=== PATIENT | female | born 1980 | race Caucasian/White ===

== ENCOUNTER 2021-05-14 14:30 | Emergency (ER) | payer SELFPAY ==
--- NOTE | 2021-05-14 15:44 | EDM.PDOC ---
ED HPI GENERAL MEDICAL PROBLEM - General Chief Complaint: General Stated Complaint: R) foot pain Time Seen by Provider: 05/14/21 15:20 Source of Information: Reports: Patient History Limitations: Reports: No Limitations - History of Present Illness INITIAL COMMENTS - FREE TEXT/NARRATIVE: This patient is a 40 year old female that presents to the ER. Patient reports that at 9am she was putting a vice on a table to help weight it down. They were getting ready to bolt it down when the vice fell onto her foot from top of the table. She reports it weighs about 75-100lbs. She reports it landed on her right foot. Patient reports right foot pain. Denies other injuries. Onset: Today Onset Date: 05/14/21 Onset Time: 09:00 Location: Reports: Lower Extremity, Right Front/Back Body Image: 1 - pain, tenderness, swelling. 2 - eccyhmosis 3 - small puncture wound Quality: Reports: Throbbing Severity: Moderate Improves with: Reports: Immobilization Worsens with: Reports: Movement Associated Symptoms: Reports: No Other Symptoms Right Foot Pain Score (Numeric/FACES): 10 - Related Data Allergies Allergy/AdvReac Type Severity Reaction Status Date / Time morphine Allergy Headache Verified 05/14/21 14:40 Penicillins Allergy Hives Verified 05/14/21 14:40 venlafaxine [From Effexor] Allergy Vomiting Verified 05/14/21 14:40 Home Meds: Home Meds Acetaminophen [Tylenol Extra Strength] 1 tab PO ASDIRECTED PRN 05/14/21 [History] Buprenorphine [Subutex] 83 mg PO TID 05/14/21 [History] Clindamycin HCl 300 mg PO QID #20 capsule 05/14/21 [Rx] Cyclobenzaprine [Flexeril] 10 mg PO TID PRN 05/14/21 [History] Gabapentin [Neurontin] 400 mg PO ASDIRECTED 05/14/21 [History] Ibuprofen [Motrin] 200 mg PO ASDIRECTED PRN 05/14/21 [History] Omeprazole 20 tab PO ASDIRECTED 05/14/21 [History] SUMAtriptan succinate [Imitrex] 1 tab PO ASDIRECTED 05/14/21 [History] levETIRAcetam [Keppra] 750 mg PO BID 05/14/21 [History] Past Medical History Respiratory History: Reports: Asthma Gastrointestinal History: Reports: Other (See Below) Other Gastrointestinal History: constipation 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 FORESTER History: 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: 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 (See Below) Other RESOURCE FORESTER History: 2 c-sections Neurological History: Reports: Migraines Psychiatric History: Reports: Anxiety, Depression Social & Family History - Tobacco Use Tobacco Use Status *Q: Current Every Day Tobacco User Years of Tobacco use: 29 Packs/Tins Daily: 1 - Caffeine Use Caffeine Use: Reports: Coffee, Energy Drinks - Recreational Drug Use Recreational Drug Use: No ED ROS GENERAL - Review of Systems Review Of Systems: See Below Constitutional: Reports: No Symptoms HEENT: Reports: No Symptoms Respiratory: Reports: No Symptoms Cardiovascular: Reports: No Symptoms Endocrine: Reports: No Symptoms GI/Abdominal: Reports: No Symptoms : Reports: No Symptoms Musculoskeletal: Reports: Foot Pain (Right) Skin: Reports: Bruising (right foot), Wound (small uncture right greater toe) Neurological: Reports: No Symptoms Psychiatric: Reports: No Symptoms Hematologic/Lymphatic: Reports: No Symptoms Immunologic: Reports: No Symptoms ED EXAM, GENERAL - Physical Exam Exam: See Below Exam Limited By: No Limitations General Appearance: Alert, WD/WN, No Apparent Distress Eye Exam: Right Eye: Corneal Abrasion Respiratory/Chest: No Respiratory Distress, Lungs Clear, Normal Breath Sounds, No Accessory Muscle Use Cardiovascular: Normal Peripheral Pulses, Regular Rate, Rhythm, No Edema, No Gallop, No JVD, No Murmur, No Rub Peripheral Pulses: 2+: Radial (L), Radial (R), Posterior Tibial (L), Posterior Tibial (R), Dorsalis Pedis (L), Dorsalis Pedis (R) Extremities: Normal Range of Motion, Normal Capillary Refill, Other (Right foot swelling, pain, tenderness, eccyhmosis. 1st/2nd/3rd metatarsal regions. Pulses +2, cap refill < 2 sec, sensory/motor function intact. Neurovascular intact. ) Neurological: Alert, Oriented, Normal Cognition, No Motor/Sensory Deficits Psychiatric: Normal Affect, Normal Mood Skin Exam: Warm, Dry, No Rash, Ecchymosis (Right foot 1st greater toe), Wou nd/Incision (small puncture wound left greater toe) ED GENERAL MEDICAL PROCEDURES - Additional/Other Procedure(s) Other (Free Text) Procedure(s): Right greater toe nail removal to check for laceration. betadine to clean the areaDigital block using marcaine 0.5% plain, lidocaine 1% plain 1ml in each webspace using a 28g needle. Patient numb achieved. No complications. Used 11 blade to under cut the nail from the bed. Used hemostats to carefully rotate the nail back and forth to pull the nail from the bed without injury. Moderate bleeding. There is no seen laceration, there is an abrasion that is not suturable at about 10 o clock nailbed. Hibiclens to clean the nailbed. rinse with NS. Pressure applied to stop the bleeding. Bleeidng controlled, Xeroform placed on wound, nonstick telfa, 4x4, coban. neurovascular intact after dressing. Course - Vital Signs Last Recorded V/S: Last Vital Signs Temp 97.6 F 05/14/21 14:35 Pulse 90 05/14/21 14:35 Resp 18 05/14/21 14:35 BP 114/72 05/14/21 14:35 Pulse Ox 96 05/14/21 14:35 - Orders/Labs/Meds Orders: Active Orders 24 hr Category Date Time Status Foot Comp Min 3V Rt [CR] Stat Exams 05/14/21 15:22 Taken Meds: Medications Discontinued Medications Generic Name Dose Route Start Last Admin Trade Name Freq PRN Reason Stop Dose Admin Bupivacaine HCl 10 ml 05/14/21 16:35 05/14/21 17:13 Bupivacaine 0.5% 10 Ml Sdv INJECT 05/14/21 16:36 10 ml ONETIME ONE Administration Lidocaine HCl 5 ml 05/14/21 16:35 05/14/21 17:13 Lidocaine 1% 5 Ml Sdv INJECT 05/14/21 16:36 5 ml ONETIME ONE Administration Oxycodone/Acetaminophen 1 tab 05/14/21 15:45 05/14/21 16:06 Acetaminophen/Oxycodone 325-5 Mg Tab PO 05/14/21 15:46 1 tab ONETIME ONE Administration - Radiology Interpretation Free Text/Narrative:: Right foot Xray: Right greater toe distal phalanx fracture - Re-Assessments/Exams Free Text/Narrative Re-Assessment/Exam: 05/14/21 16:12 Called [facility] podiatry for consult, they will call me back. 05/14/21 16:45 Spoke to podiatry they report to remove the nail to check for nailbed laceration. If laceration, suture. Post op shoe, abx tx. Departure - Departure Time of Disposition: 17:37 Disposition: Home, Self-Care 01 Condition: Fair Clinical Impression: Fractured great toe Qualifiers: Encounter type: initial encounter Fracture type: open Phalanx: distal Fracture alignment: displaced Laterality: right Qualified Code(s): S92.421B - Displaced fracture of distal phalanx of right great toe, initial encounter for open fracture - Discharge Information *PRESCRIPTION DRUG MONITORING PROGRAM REVIEWED*: Not Applicable *COPY OF PRESCRIPTION DRUG MONITORING REPORT IN PATIENT BRIANNA: Not Applicable Prescriptions: Clindamycin HCl 300 mg PO QID #20 capsule Instructions: Toe Fracture, [id number], Fingernail or Toenail Removal, Adult, Care After, Nail Bed Injury Referrals: PCP,None [Primary Care Provider] - Forms: ED Department Discharge Additional Instructions: Followup with podiatry by calling for appointment [phone] Followup with primary care provider as needed Return to the ER for worsening of condition or any emergent concerns Rest Ice Elevate Keep wound clean Walking shoe Crutches, weight bearing as tolerated Clindamycin 150mg take 2 pills four times a day #12 take home Clindamycin 300mg 1 pill four times a day for 5 more days #20 sent to pharmacy Percocet 5/325mg 1 pill every 6 hours as needed for pain #6 take home IbuProfen over the counter as needed for pain Sepsis Event Note (ED) - Evaluation Sepsis Screening Result: No Definite Risk - Focused Exam Vital Signs: Vital Signs Temp Pulse Resp BP Pulse Ox 05/14/21 14:35 97.6 F 90 18 114/72 96 - My Orders Last 24 Hours: My Active Orders 05/14/21 15:22 Foot Comp Min 3V Rt [CR] Stat - Assessment/Plan Last 24 Hours: My Active Orders 05/14/21 15:22 Foot Comp Min 3V Rt [CR] Stat Plan: PLEASE SEE RN NOTE FOR PFSH
[2021-05-14] MEDS ORDERED: Acetaminophen/oxyCODONE 325-5 MG Tab PO ONE (15:45)
[2021-05-14] MEDS ORDERED: Bupivacaine 0.5% 10 ML SDV INJECT ONE (16:35)
[2021-05-14] MEDS ORDERED: Acetaminophen/oxyCODONE 325-5 MG Tab ONE (17:25)
[2021-05-14] MEDS ORDERED: Clindamycin HCl 150 MG Cap ONE (17:25)
[2021-05-14] MEDS ORDERED: Take Home: Acetaminophen/oxyCODONE 325-5 MG, 2 Tab Pack PO ONE (17:42)
[2021-05-14] MEDS ORDERED: Take Home: Clindamycin HCl 150 MG Cap, 6 Cap Pack PO ONE (17:42)
== END 2021-05-14 18:00 | disposition home or self-care (01) ==
LOC: CC.ED 14:30
DX: S92.421B Displaced fracture of distal phalanx of right great toe, initial encounter for open fracture (principal); S05.01XA Injury of conjunctiva and corneal abrasion without foreign body, right eye, initial encounter; G43.909 Migraine, unspecified, not intractable, without status migrainosus; Z88.5 Allergy status to narcotic agent; Z88.0 Allergy status to penicillin; Z79.899 Other long term (current) drug therapy; Z72.0 Tobacco use; W20.8XXA Other cause of strike by thrown, projected or falling object, initial encounter
CPT/HCPCS: 11730; 73630; 99283; A9270; J3490

== ENCOUNTER 2021-06-20 22:20 | Emergency (ER) | payer SELFPAY ==
[2021-06-20] MEDS: cefTRIAXone 1 GM Vial IM ONE (22:49)
--- NOTE | 2021-06-20 22:56 | EDM.PDOC ---
ED HPI GENERAL MEDICAL PROBLEM - General Chief Complaint: General Stated Complaint: Dental Pain Time Seen by Provider: 06/20/21 22:30 Source of Information: Reports: Patient History Limitations: Reports: No Limitations - History of Present Illness INITIAL COMMENTS - FREE TEXT/NARRATIVE: Sandra is 40 year old female presents to ER with complaints of a tooth abscess. has a history of issues with her teeth. Has suffered from tooth abscesses before and typically is able to control them with antibiotics. Has been taking a great deal of ibuprofen as of late and is causing abdominal discomfort now. Is also on Suboxone. has had this since moving here 4 months ago but once the abscess popped, it cleared on its own. She had a dental plan in [place] before moving here but it "Fell apart when we lost our jobs there due to covid cuts". Relocated here and is working at the [employer] here now. No fevers. Has noted cheek swelling that is now settling down in to her neck as well. Onset: Gradual Duration: Day(s): Location: Reports: Face Quality: Reports: Ache Severity: Moderate Improves with: Reports: Medication Associated Symptoms: Reports: Headaches. Denies: Fever/Chills, Nausea/Vomiting, Shortness of Breath Treatments DATABASE MANAGER: Reports: NSAIDS r lower dental Pain Score (Numeric/FACES): 10 - Related Data Allergies Allergy/AdvReac Type Severity Reaction Status Date / Time morphine Allergy Headache Verified 06/20/21 22:22 Penicillins Allergy Hives Verified 06/20/21 22:22 venlafaxine [From Effexor] AdvReac Vomiting Verified 06/20/21 22:22 Home Meds: Home Meds Buprenorphine [Subutex] 83 mg PO TID 05/14/21 [History] Cyclobenzaprine [Flexeril] 10 mg PO TID PRN 05/14/21 [History] Gabapentin [Neurontin] 400 mg PO ASDIRECTED 05/14/21 [History] Omeprazole 20 tab PO ASDIRECTED 05/14/21 [History] SUMAtriptan succinate [Imitrex] 1 tab PO ASDIRECTED 05/14/21 [History] levETIRAcetam [Keppra] 750 mg PO BID 05/14/21 [History] Citalopram Hydrobromide [Celexa] 40 mg PO DAILY 06/20/21 [History] Clindamycin HCl 300 mg PO QID #40 capsule 06/20/21 [Rx] busPIRone [Buspar] 15 mg PO QID 06/20/21 [History] Past Medical History Respiratory History: Reports: Asthma Gastrointestinal History: Reports: Other (See Below) Other Gastrointestinal History: constipation 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 Denies: Ear Pain, Sinus Problem, Throat Pain, Vertigo Respiratory: Denies: Shortness of Breath Cardiovascular: Denies: Chest Pain GI/Abdominal: Reports: No Symptoms ED EXAM, GENERAL - Physical Exam Exam: See Below Exam Limited By: No Limitations General Appearance: Alert, WD/WN, Mild Distress Ears: Normal External Exam, Normal TMs Nose: Normal Inspection, Normal Mucosa, No Blood Throat/Mouth: Other (multiple broken teeth and dental caries. ) Head: Facial Swelling (right jaw line has significant swelling and lymphadenopathy) Neck: Normal Inspection, Supple, Non-Tender Respiratory/Chest: No Respiratory Distress, Lungs Clear, Normal Breath Sounds Cardiovascular: Regular Rate, Rhythm Course - Vital Signs Last Recorded V/S: Last Vital Signs Temp 96.7 F L 06/20/21 22:22 Pulse 84 06/20/21 22:22 Resp 16 06/20/21 22:22 BP 179/90 H 06/20/21 22:22 Pulse Ox 99 06/20/21 22:22 - Orders/Labs/Meds Meds: Medications Discontinued Medications Generic Name Dose Route Start Last Admin Trade Name Freq PRN Reason Stop Dose Admin Ceftriaxone Sodium 1 gm 06/20/21 22:42 06/20/21 22:49 Ceftriaxone 1 Gm Vial IM 06/20/21 22:43 1 gm ONETIME ONE Administration Departure - Departure Time of Disposition: 22:56 Disposition: Home, Self-Care 01 Clinical Impression: Tooth abscess - Discharge Information *PRESCRIPTION DRUG MONITORING PROGRAM REVIEWED*: No *COPY OF PRESCRIPTION DRUG MONITORING REPORT IN PATIENT BRIANNA: No Prescriptions: Clindamycin HCl 300 mg PO QID #40 capsule Instructions: Dental Abscess Referrals: PCP,None [Primary Care Provider] - Forms: ED Department Discharge Additional Instructions: 1. Tylenol ES one tab with 600 mg every hours as needed for tooth pain 2. Start Clindamycin in the am and take four times per day 3. Follow up with Dr. Evangelista or Dr. Andino for further dental care Sepsis Event Note (ED) - Evaluation Sepsis Screening Result: No Definite Risk - Focused Exam Vital Signs: Vital Signs Temp Pulse Resp BP Pulse Ox 06/20/21 22:22 96.7 F L 84 16 179/90 H 99
== END 2021-06-20 22:55 | disposition home or self-care (01) ==
LOC: CC.ED 22:20
DX: K04.7 Periapical abscess without sinus (principal); K02.9 Dental caries, unspecified; J45.909 Unspecified asthma, uncomplicated; Z72.0 Tobacco use; Z88.5 Allergy status to narcotic agent; Z88.0 Allergy status to penicillin; Z88.8 Allergy status to other drugs, medicaments and biological substances; Z98.890 Other specified postprocedural states; Z79.899 Other long term (current) drug therapy
CPT/HCPCS: 96372; 99282; J0696

== ENCOUNTER 2021-11-14 01:04 | Emergency (ER) | payer BC ==
[2021-11-14 01:35] VITALS: PULSE 110
--- NOTE | 2021-11-14 01:42 | EDM.PDOC ---
ED HPI GENERAL MEDICAL PROBLEM - General Chief Complaint: General Stated Complaint: post seizure activity Time Seen by Provider: 11/14/21 01:35 Source of Information: Reports: Patient History Limitations: Reports: No Limitations - History of Present Illness INITIAL COMMENTS - FREE TEXT/NARRATIVE: Sandra is a 41 yo female who presents to the ED with complaints of a seizure this evening. She admits she recently ran out of Keppra, which she has been on at 750mg twice a day for quite some time. States she ran out on the 1st and hasn't had any since. Has ran out before and has history of seizures than. She did have a tablet at home of 500mg that she was saving for emergent uses and took that prior to coming in. States typical triggers for her in the past was when she was anorexic and would get low blood sugars. She hasn't ate at all today either. Admits she just got insurance today which is why she didn't establish care as she was waiting for insurance. She denies any fevers or recent trauma. States she was seen by neurology and underwent a thorough work up in the past for seizures. Her spouse admits today she did have the typical jerking for roughly 1-2 minutes and than subsided. Headache Pain Score (Numeric/FACES): 4 Bilateral Shoulder Pain Score (Numeric/FACES): 6 - Related Data Allergies Allergy/AdvReac Type Severity Reaction Status Date / Time morphine Allergy Headache Verified 11/14/21 01:21 Penicillins Allergy Hives Verified 11/14/21 01:21 venlafaxine [From Effexor] AdvReac Vomiting Verified 11/14/21 01:21 Home Meds: Home Meds Buprenorphine [Subutex] 8 mg PO TID 05/14/21 [History] Cyclobenzaprine [Flexeril] 10 mg PO TID PRN 05/14/21 [History] Gabapentin [Neurontin] 400 mg PO ASDIRECTED PRN 05/14/21 [History] Omeprazole 20 tab PO ASDIRECTED 05/14/21 [History] SUMAtriptan succinate [Imitrex] 1 tab PO ASDIRECTED 05/14/21 [History] levETIRAcetam [Keppra] 750 mg PO BID 05/14/21 [History] Citalopram Hydrobromide [Celexa] 40 mg PO DAILY 06/20/21 [History] busPIRone [Buspar] 15 mg PO QID 06/20/21 [History] Past Medical History Respiratory History: Reports: Asthma Gastrointestinal History: Reports: Other (See Below) Other Gastrointestinal History: constipation 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 Denies: Fever, Chills, Weakness HEENT: Reports: Other (sinus congestion and sore throat) Respiratory: Reports: No Symptoms Cardiovascular: Reports: No Symptoms Endocrine: Reports: No Symptoms GI/Abdominal: Reports: No Symptoms : Reports: No Symptoms Musculoskeletal: Reports: Shoulder Pain Skin: Reports: No Symptoms Neurological: Reports: Pre-Existing Deficit. Denies: Confusion, Dizziness, Headache, Numbness, Paresthesia, Tingling, Difficulty Walking, Weakness, Change in Speech ED EXAM, GENERAL - Physical Exam Exam: See Below Exam Limited By: No Limitations General Appearance: Alert, WD/WN, No Apparent Distress Eye Exam: Bilateral Eye: EOMI, Normal Inspection Ears: Normal External Exam, Normal Canal, Hearing Grossly Normal, Normal TMs Nose: Normal Inspection, Normal Mucosa, No Blood Throat/Mouth: Normal Lips, Normal Voice, No Airway Compromise, Other (poor dentition, missing teeth. Erythema with white plaques noted to tongue. ) Head: Atraumatic, Normocephalic Neck: Normal Inspection, Supple. No: Lymphadenopathy (L), Lymphadenopathy (R) Respiratory/Chest: No Respiratory Distress, Lungs Clear, Normal Breath Sounds, No Accessory Muscle Use Cardiovascular: Regular Rate, Rhythm, No Murmur Extremities: Normal Inspection Neurological: Alert, Oriented, CN II-XII Intact, Normal Cognition, No Motor/Sensory Deficits Psychiatric: Normal Affect, Normal Mood Skin Exam: Warm, Dry, Intact, Normal Color, No Rash Course - Vital Signs Last Recorded V/S: Last Vital Signs Temp 98.1 F 11/14/21 01:05 Pulse 110 H 11/14/21 01:05 Resp 16 11/14/21 01:05 BP 140/90 11/14/21 02:05 Pulse Ox 97 11/14/21 01:05 - Orders/Labs/Meds Orders: Active Orders 24 hr Category Date Time Status levETIRAcetam [Keppra] Med 11/14/21 02:00 Active 500 mg PO BID Medication Orders Levetiracetam (Levetiracetam 500 Mg Tab) 500 mg PO BID MATHEUS Last Admin: 11/14/21 02:06 Dose: 500 mg Documented by: KAREN Labs: Laboratory Tests 11/14/21 11/14/21 11/14/21 Range/Units 01:18 01:18 01:50 WBC 10.5 (4.0-11.0) 10^3/uL RBC 4.27 (4.00-5.50) x10^6/uL Hgb 12.8 (12.0-16.0) g/dL Hct 40.0 (37.0-47.0) % MCV 93.7 (83.0-97.0) fL MCH 30.0 (27.0-32.0) pg MCHC 32.0 (32.0-36.0) g/dL RDW Coeff of Cortney 12.8 (11.0-15.0) % Plt Count 288 (150-400) 10^3/uL Immature Gran % (Auto) 0.3 (0.0-4.9) % Neut % (Auto) 78.3 H (41-71) % Lymph % (Auto) 14.0 L (24-44) % Forrest % (Auto) 6.1 (0-10) % Eos % (Auto) 1.0 (0-6) % Baso % (Auto) 0.3 (0-1) % Neut # (Auto) 8.20 H (1.80-8.00) x10^3/uL Lymph # (Auto) 1.47 (0.60-5.00) 10^3/uL Forrest # (Auto) 0.64 (0.00-1.50) 10^3/uL Eos # (Auto) 0.11 (0.00-1.50) 10^3/uL Baso # (Auto) 0.03 (0.00-0.50) 10^3/uL Immature Gran # (Auto) 0.03 (0.00-0.49) 10^3/uL Sodium 141 (136-145) mEq/L Potassium 3.7 (3.5-5.0) mEq/L Chloride 100 (98-106) mEq/L Carbon Dioxide 31 (21-32) mmol/L BUN 13 (7-18) mg/dL Creatinine 0.8 (0.6-1.0) mg/dL Est Cr Clr Drug Dosing 84.95 mL/min Estimated GFR (MDRD) > 60 (>=60) mL/min Glucose 90 (75-99) mg/dL Calcium 8.9 (8.4-10.1) mg/dL Total Bilirubin 0.2 (0.0-1.0) mg/dL AST 13 L (15-37) U/L ALT 31 (12-78) U/L Alkaline Phosphatase 91 (46-116) U/L C-Reactive Protein 1.6 H (0.2-0.8) mg/dL Total Protein 8.0 (6.4-8.2) g/dL Albumin 3.8 (3.4-5.0) g/dL Urine Color Yellow (YELLOW) Urine Appearance Clear (CLEAR) Urine pH 6.5 (4.5-8.0) Ur Specific Wenham 1.025 H (1.003-1.020) Urine Protein Negative (NEGATIVE) mg/dL Urine Glucose (UA) Negative (NEGATIVE) mg/dL Urine Ketones Negative (NEGATIVE) mg/dL Urine Occult Blood Negative (NEGATIVE) Urine Nitrite Negative (NEGATIVE) Urine Bilirubin Negative (NEGATIVE) Urine Urobilinogen 0.2 (0.2-1.0) EU/dL Ur Leukocyte Esterase Negative (NEGATIVE) Urine Opiates Screen (NEGATIVE) Ur Oxycodone Screen (NEGATIVE) Urine Methadone Screen (NEGATIVE) Ur Barbiturates Screen (NEGATIVE) U Tricyclic Antidepress (NEGATIVE) Ur Phencyclidine Scrn (NEGATIVE) Ur Amphetamine Screen (NEGATIVE) U Methamphetamines Scrn (NEGATIVE) Urine MDMA Screen (NEGATIVE) U Benzodiazepines Scrn (NEGATIVE) Urine Cocaine Screen (NEGATIVE) U Marijuana (THC) Screen (NEGATIVE) 11/14/21 Range/Units 01:55 WBC (4.0-11.0) 10^3/uL RBC (4.00-5.50) x10^6/uL Hgb (12.0-16.0) g/dL Hct (37.0-47.0) % MCV (83.0-97.0) fL MCH (27.0-32.0) pg MCHC (32.0-36.0) g/dL RDW Coeff of Cortney (11.0-15.0) % Plt Count (150-400) 10^3/uL Immature Gran % (Auto) (0.0-4.9) % Neut % (Auto) (41-71) % Lymph % (Auto) (24-44) % Forrest % (Auto) (0-10) % Eos % (Auto) (0-6) % Baso % (Auto) (0-1) % Neut # (Auto) (1.80-8.00) x10^3/uL Lymph # (Auto) (0.60-5.00) 10^3/uL Forrest # (Auto) (0.00-1.50) 10^3/uL Eos # (Auto) (0.00-1.50) 10^3/uL Baso # (Auto) (0.00-0.50) 10^3/uL Immature Gran # (Auto) (0.00-0.49) 10^3/uL Sodium (136-145) mEq/L Potassium (3.5-5.0) mEq/L Chloride (98-106) mEq/L Carbon Dioxide (21-32) mmol/L BUN (7-18) mg/dL Creatinine (0.6-1.0) mg/dL Est Cr Clr Drug Dosing mL/min Estimated GFR (MDRD) (>=60) mL/min Glucose (75-99) mg/dL Calcium (8.4-10.1) mg/dL Total Bilirubin (0.0-1.0) mg/dL AST (15-37) U/L ALT (12-78) U/L Alkaline Phosphatase (46-116) U/L C-Reactive Protein (0.2-0.8) mg/dL Total Protein (6.4-8.2) g/dL Albumin (3.4-5.0) g/dL Urine Color (YELLOW) Urine Appearance (CLEAR) Urine pH (4.5-8.0) Ur Specific Wenham (1.003-1.020) Urine Protein (NEGATIVE) mg/dL Urine Glucose (UA) (NEGATIVE) mg/dL Urine Ketones (NEGATIVE) mg/dL Urine Occult Blood (NEGATIVE) Urine Nitrite (NEGATIVE) Urine Bilirubin (NEGATIVE) Urine Urobilinogen (0.2-1.0) EU/dL Ur Leukocyte Esterase (NEGATIVE) Urine Opiates Screen Negative (NEGATIVE) Ur Oxycodone Screen Negative (NEGATIVE) Urine Methadone Screen Negative (NEGATIVE) Ur Barbiturates Screen Negative (NEGATIVE) U Tricyclic Antidepress Positive H (NEGATIVE) Ur Phencyclidine Scrn Negative (NEGATIVE) Ur Amphetamine Screen Positive H (NEGATIVE) U Methamphetamines Scrn Negative (NEGATIVE) Urine MDMA Screen Negative (NEGATIVE) U Benzodiazepines Scrn Negative (NEGATIVE) Urine Cocaine Screen Negative (NEGATIVE) U Marijuana (THC) Screen Negative (NEGATIVE) Meds: Medications Generic Name Dose Route Start Last Admin Trade Name Freq PRN Reason Stop Dose Admin Levetiracetam 500 mg 11/14/21 02:00 11/14/21 02:06 Levetiracetam 500 Mg Tab PO 500 mg BID MATHEUS Administration Departure - Departure Time of Disposition: 02:26 Disposition: Home, Self-Care 01 Clinical Impression: Seizure disorder, Oral thrush - Discharge Information Instructions: Oral Thrush, Adult, [id number], Seizure, Adult, [id number] Referrals: PCP,None [Primary Care Provider] - Forms: ED Department Discharge Additional Instructions: 1) Prescription provided for Pedro to be on regular dose of 750mg twice a day 2) 1 tablet of Ativan provided, as discussed, if recurring seizure activityl 3) Labs were unremarkable today, no sign of hypoglycemia, electrolyte concerns, infection, etc.. 4) Recommend establishing care as discussed as well. 5) If seizures would return or any concerns at all, return to ED. Sepsis Event Note (ED) - Evaluation Sepsis Screening Result: No Definite Risk - Focused Exam Vital Signs: Vital Signs Temp Pulse Resp BP Pulse Ox 11/14/21 02:05 140/90 11/14/21 01:30 142/98 H 11/14/21 01:05 98.1 F 110 H 16 150/100 H 97 - Problem List & Annotations (1) Oral thrush SNOMED Code(s): 74012468 Code(s): B37.0 - CANDIDAL STOMATITIS Status: Acute Current Visit: Yes (2) Seizure disorder SNOMED Code(s): 527972863 Code(s): G40.909 - EPILEPSY, UNSP, NOT INTRACTABLE, WITHOUT STATUS EPILEPTICUS Status: Acute Current Visit: Yes - My Orders Last 24 Hours: My Active Orders 11/14/21 02:00 levETIRAcetam [Keppra] 500 mg PO BID - Assessment/Plan Last 24 Hours: My Active Orders 11/14/21 02:00 levETIRAcetam [Keppra] 500 mg PO BID Plan: Sandra has been asymptomatic in the ED. No sign of seizure activity. Has been alert and orientated X 3, having normal conversation. She was given 500mg of Keppra in the ED tonight. Prescription provided for Keppra 750mg BID, which she can fill at local pharmacy. Patient found to have oral thrush on exam and will give prescription as well. Encourage patient to establish care to manage chronic medications. Blood pressure was elevated on arrival and did gradually come down in the ED. Will discharge home at this time in satisfactory condition.
[2021-11-14 01:45] LABS: CHLORIDE,CL 100 mEq/L (98-106); SODIUM,NA 141 mEq/L (136-145)
[2021-11-14 01:56] LABS: AMPHETAMINES,URINE POSITIVE (NEGATIVE); BARBITURATES,URINE NEGATIVE (NEGATIVE); BENZODIAZEPINE,URINE NEGATIVE (NEGATIVE); MDMA (ECSTASY), URINE NEGATIVE (NEGATIVE); METHADONE,URINE NEGATIVE (NEGATIVE); METHAMPHETAMINES,URINE NEGATIVE (NEGATIVE); OPIATES,URINE NEGATIVE (NEGATIVE); OXYCODONE,URINE NEGATIVE (NEGATIVE); PHENCYCLIDINE,URINE NEGATIVE (NEGATIVE); TCA,URINE POSITIVE (NEGATIVE)
[2021-11-14 02:05] VITALS: BP 140/90
[2021-11-14] MEDS: levETIRAcetam 500 MG Tab PO SCH (02:06)
[2021-11-14] MEDS: LORazepam 0.5 MG Tab PO ONE (02:24)
== END 2021-11-14 02:35 | disposition home or self-care (01) ==
LOC: CC.ED 01:04
DX: G40.909 Epilepsy, unspecified, not intractable, without status epilepticus (principal); B37.0 Candidal stomatitis; J45.909 Unspecified asthma, uncomplicated; Z88.0 Allergy status to penicillin; Z88.8 Allergy status to other drugs, medicaments and biological substances; Z88.5 Allergy status to narcotic agent; Z79.899 Other long term (current) drug therapy
CPT/HCPCS: 36415; 80053; 80305-QW; 81003; 85025; 86140; 99284; A9270-GY

== ENCOUNTER 2022-03-12 21:31 | Emergency (ER) | payer SELFPAY ==
[2022-03-12] MEDS ORDERED: Sodium Chloride 0.9% 10 ML Syringe FLUSH PRN (21:50)
[2022-03-12 22:16] LABS: AMPHETAMINES,URINE NEGATIVE (NEGATIVE); BARBITURATES,URINE NEGATIVE (NEGATIVE); BENZODIAZEPINE,URINE NEGATIVE (NEGATIVE); MDMA (ECSTASY), URINE NEGATIVE (NEGATIVE); METHADONE,URINE NEGATIVE (NEGATIVE); METHAMPHETAMINES,URINE NEGATIVE (NEGATIVE); OPIATES,URINE NEGATIVE (NEGATIVE); OXYCODONE,URINE NEGATIVE (NEGATIVE); PHENCYCLIDINE,URINE NEGATIVE (NEGATIVE); TCA,URINE POSITIVE (NEGATIVE)
[2022-03-12 22:19] LABS: CHLORIDE,CL 104 mEq/L (98-106); SODIUM,NA 140 mEq/L (136-145)
[2022-03-13] MEDS ORDERED: Iopamidol 755 Mg/ML 100 ML Bottle IVPUSH ONE (01:57)
== END 2022-03-13 03:57 | disposition home or self-care (01) ==
LOC: CC.ED 21:31
DX: G40.909 Epilepsy, unspecified, not intractable, without status epilepticus (principal); R93.89 Abnormal findings on diagnostic imaging of other specified body structures; F41.9 Anxiety disorder, unspecified; F32.A Depression, unspecified; Z20.822 Contact with and (suspected) exposure to COVID-19; Z88.5 Allergy status to narcotic agent; Z88.0 Allergy status to penicillin; Z88.8 Allergy status to other drugs, medicaments and biological substances
CPT/HCPCS: 36415; 70450; 71046; 71275; 72125; 80053; 80177; 80305-QW; 81003; 81025; 83605; 83735; 84484; 85025; 85379; 85610; 86140; 87804; 99284; 99285-25; Q9967; U0002

== ENCOUNTER 2022-12-19 10:02 | Emergency (ER) | payer MEDICAID ==
[~2022-12-19 10:02] MED LIST: levETIRAcetam in NaCl (iso-os) 100 ML ONE
[2022-12-19] MEDS ORDERED: Diphtheria,Pertussis(Acell),Tetanus Vaccine 0.5 ML Syringe IM ONE (10:17)
[2022-12-19] MEDS: LEVETIRACETAM IV ONE ×4 (10:30→10:53)
[2022-12-19] MEDS: NACL IV ONE ×4 (10:30→10:53)
[2022-12-19] MEDS ORDERED: Ketorolac 30 MG/ML SDV IVPUSH ONE (10:41)
[2022-12-19] MEDS ORDERED: Lidocaine/Prilocaine 2.5-2.5% Crm 5 GM Tube TOP ONE (10:42)
== END 2022-12-19 11:30 | disposition home or self-care (01) ==
LOC: CC.ED 10:02
DX: S01.01XA Laceration without foreign body of scalp, initial encounter (principal); G40.909 Epilepsy, unspecified, not intractable, without status epilepticus; Z88.6 Allergy status to analgesic agent; Z88.0 Allergy status to penicillin; Z88.8 Allergy status to other drugs, medicaments and biological substances; Z79.899 Other long term (current) drug therapy; Z23 Encounter for immunization
CPT/HCPCS: 12002; 80177; 90471; 90715; 96365; 96375; 99283; 99284-25; A9270-GY; J1885; J1953

== ENCOUNTER 2024-11-19 12:55 | Emergency (ER) | payer OTHER | END 2024-11-19 13:34 | disposition home or self-care (01) | LOC: CC.ED 12:55 | DX: S80.12XA Contusion of left lower leg, initial encounter (principal); I10 Essential (primary) hypertension; J45.909 Unspecified asthma, uncomplicated; F17.210 Nicotine dependence, cigarettes, uncomplicated; Z79.899 Other long term (current) drug therapy; Z88.0 Allergy status to penicillin; Z88.5 Allergy status to narcotic agent; Z88.8 Allergy status to other drugs, medicaments and biological substances; W22.8XXA Striking against or struck by other objects, initial encounter; Y92.410 Unspecified street and highway as the place of occurrence of the external cause | CPT/HCPCS: 73590-LT; 99283 ==

== ENCOUNTER 2025-05-04 17:30 | Emergency (ER) | payer OTHER, MEDICAID | END 2025-05-04 18:55 | disposition home or self-care (01) | LOC: CC.ED 17:30 | DX: S63.616A Unspecified sprain of right little finger, initial encounter (principal); S50.11XA Contusion of right forearm, initial encounter; I10 Essential (primary) hypertension; Z79.899 Other long term (current) drug therapy; Z88.0 Allergy status to penicillin; Z88.8 Allergy status to other drugs, medicaments and biological substances; W22.8XXA Striking against or struck by other objects, initial encounter | CPT/HCPCS: 73090-RT; 73140-F9; 99283 ==